=== PATIENT | female | born 1985 | race Caucasian/White ===

== ENCOUNTER 2016-07-13 21:35 | Emergency (ER) | payer OTHER ==
[~2016-07-13] VITALS: Ht 167.6 cm; Wt 83.9 kg
[~2016-07-13 21:35] MED LIST: 'PARAFON FORTE500 M1 PO; ALBUTEROL0.09 MG/A2 IH; AMOXICILLIN500 M3 PO; AMOXICILLIN500 MG PO; AMOXIL500 MG PO; ANAPROX DS550 MG PO; ATARAX,VISTARIL10 MG PO; BACTRIM DS 8001 TA1 PO; BENTYL PO; BENTYL10 MG PO; BUSPIRONE30 MG PO; CARAFATE1 G1 PO; CEPHALEXIN500 M1 PO; CIPRO250 MG PO; CIPROFLOXACIN500 MG PO; CLARITIN-D 12 H1 TAB PO; CLARITIN10 MG PO; CLEOCIN HCL150 MG PO; COMBIVENT1 ARO IH; CYCLOBENZAPRINE10 MG PO; DARVOCET N 1001 TAB PO; DONNATAL1 TAB PO; DOXYCYCLINE MO100 MG PO; EES400 MG PO; FLEXERIL10 MG PO; Fioricet 325 MG1 TAB PO; GOLYTELY1 PDR PO; HYDROCODONE BIT1 T11 PO; HYDROXYZINE PAM50 MG PO; IBU-8800 MG PO; IMITREX100 MG PO; IMODIUM2 MG PO; KLONOPIN0.5 MG PO; KLONOPIN1 M1 PO; LAMICTAL100 MG PO; LAMICTAL200 MG PO; LAMOTRIGINE200 MG PO; LIDEX0.05% T; MACROBID100 M1 PO; MEDROL DOSEPAK4 MG PO; MELATONIN5 M1 PO; MOTRIN800 MG PO; NAPROSYN500 MG PO; NATURE'S BLEND F1 MG PO; NEURONTIN300 MG PO; NICODERM C21 MG/24 H TD; NKHM; NORCO 5-325 TA1 EACH PO; NORTRIPTYLINE10 MG PO; OMEPRAZOLE20 M2 PO; PEN-VEE K500 MG PO; PENICILLIN VK500 MG PO; PEPCID20 MG PO; PEPCID40 MG PO; PHENERGAN25 M1 PO; PREDNICOT20 MG PO; PRINIVIL5 M1 PO; PROAIR HFA0.09 MG/AC IH; PROPRANOLOL HCL40 M1 PO; PYRIDIUM200 M1 PO; PYRIDIUM200 MG PO; Phenergan25 MG PO; REMERON45 MG PO; ROBITUSSIN DM 105 ML PO; ROBITUSSIN-AC120 ML PO; SPIRIVA RESPIMAT4 GM INH; SUDAFED60 MG PO; SYMBICORT1 AE1 INH; TESSALON PERLE200 MG PO; TOBRADEX 0.1%-0.5 ML OPH; TORADOL10 MG PO; TRAMADOL HCL50 MG PO; TRAZODONE100 MG PO; TRIMOX500 MG PO; TRINTELLIX20 MG PO; TUDORZA PRESS400 MCG IH; ULTRAM50 MG PO; VENTOLIN 02.5 MG/3 M INH; VENTOLIN H0.09 MG/AC INH; VICODIN 5/500 505 MG PO; VICODIN 500 MG-1 TAB PO; VISTARIL25 M1 PO; VOLTAREN50 M1 PO; ZITHROMAX Z PA250 MG PO; ZITHROMAX250 MG PO; ZOFRAN ODT4 MG SL; ZOFRAN4 MG PO; ZOFRAN8 M1 PO; Zofran4 MG PO
== END 2016-07-13 21:51 | disposition home or self-care (01) ==
LOC: ED 21:35
DX: S46.911A Strain of unspecified muscle, fascia and tendon at shoulder and upper arm level, right arm, initial encounter (principal); F17.200 Nicotine dependence, unspecified, uncomplicated; J44.9 Chronic obstructive pulmonary disease, unspecified; E66.9 Obesity, unspecified; Z68.34 Body mass index [BMI] 34.0-34.9, adult; Z98.51 Tubal ligation status; Z98.890 Other specified postprocedural states; Z88.4 Allergy status to anesthetic agent; X58.XXXA Exposure to other specified factors, initial encounter; Y93.89 Activity, other specified; Y92.89 Other specified places as the place of occurrence of the external cause; Y99.9 Unspecified external cause status

== ENCOUNTER 2017-05-09 02:42 | Emergency (ER) | payer OTHER ==
[~2017-05-09] VITALS: Ht 167.6 cm; Wt 94.1 kg
[2017-05-09 03:20] LABS: BASO # 0.1 10*3/uL (0.0-0.1); BASO % 0.7 % (0.0-1.0); EOS # 0.3 10*3/uL (0.0-0.4); EOS % 2.8 % (1.0-4.0); HEMATOCRIT 40.1 % (37.0-47.0); HEMOGLOBIN 13.2 g/dl (12.0-16.0); LYMPH # 3.2 10*3/uL (1.3-4.4); LYMPH % 35.5 % (27.0-41.0); MEAN CELL VOLUME 84.4 fl (81.0-99.0); MEAN CORPUSCULAR HGB 27.8 pg (27.0-31.0); MEAN CORPUSCULAR HGB CONC 32.9 g/dl (33.0-37.0); MEAN PLATELET VOLUME 9.4 fl (9.6-12.3); MONO # 0.6 10*3/uL (0.1-1.0); MONO % 6.5 % (3.0-9.0); NEUT # 4.8 10*3/uL (2.3-7.9); NEUT % 54.3 % (47.0-73.0); PLATELET COUNT AUTOMATED 315 10*3/uL (130-400); RED BLOOD COUNT 4.75 10*6/uL (4.10-5.10); RED CELL DISTRI WIDTH 13.2 % (0-14.5); WHITE BLOOD COUNT 8.9 10*3/uL (4.8-10.8)
[2017-05-09 03:31] LABS: BUN 10 mg/dl (7-24); CHLORIDE 104 mmol/L (98-107); CREATININE 1.06 mg/dL (0.55-1.02); POTASSIUM 3.5 mmol/L (3.5-5.1); SODIUM 139 mmol/L (136-145)
[2017-05-09] MEDS ORDERED: OMNICEF300 MG PO (04:02)
[2017-05-09] MEDS ORDERED: PROAIR HFA8.5 GM INH (04:02)
[2017-05-09] MEDS ORDERED: PREDNISONE10 MG PO (04:02)
== END 2017-05-09 04:34 | disposition home or self-care (01) ==
LOC: ED 02:42
PROVIDERS: Emergency Medicine Emergency Medical Services
DX: J20.9 Acute bronchitis, unspecified (principal); J44.9 Chronic obstructive pulmonary disease, unspecified; F17.200 Nicotine dependence, unspecified, uncomplicated; Z88.4 Allergy status to anesthetic agent

== ENCOUNTER 2017-05-31 20:50 | Emergency (ER) | payer OTHER ==
[~2017-05-31] VITALS: Ht 167.6 cm; Wt 92.1 kg
[~2017-05-31 20:50] MED LIST changes: +OMNICEF300 MG PO; +PREDNISONE10 MG PO; +PROAIR HFA8.5 GM INH
== END 2017-05-31 22:46 | disposition home or self-care (01) ==
LOC: ED 20:50
DX: G43.909 Migraine, unspecified, not intractable, without status migrainosus (principal); J44.9 Chronic obstructive pulmonary disease, unspecified; F10.10 Alcohol abuse, uncomplicated; Z88.8 Allergy status to other drugs, medicaments and biological substances; Z79.899 Other long term (current) drug therapy; Z68.34 Body mass index [BMI] 34.0-34.9, adult; Z98.51 Tubal ligation status

== ENCOUNTER 2017-07-15 16:53 | Emergency (ER) | payer OTHER ==
[~2017-07-15] VITALS: Ht 167.6 cm; Wt 93.9 kg
[2017-07-15] MEDS ORDERED: Motrin,Rufen800 MG PO (17:07)
[2017-07-15] MEDS ORDERED: AMOXICILLIN500 M2 PO (17:07)
== END 2017-07-15 18:34 | disposition home or self-care (01) ==
LOC: ED 16:53
DX: K08.89 Other specified disorders of teeth and supporting structures (principal); F17.200 Nicotine dependence, unspecified, uncomplicated; Z98.51 Tubal ligation status; Z98.890 Other specified postprocedural states; Z88.4 Allergy status to anesthetic agent; Z79.899 Other long term (current) drug therapy

== ENCOUNTER 2017-07-23 14:11 | Emergency (ER) | payer OTHER ==
[~2017-07-23] VITALS: Ht 167.6 cm; Wt 93.9 kg
[~2017-07-23 14:11] MED LIST changes: +AMOXICILLIN500 M2 PO; +Motrin,Rufen800 MG PO
[2017-07-23] MEDS ORDERED: DESOGEST-ETH E1 EACH PO (14:13)
[2017-07-23] MEDS ORDERED: AMITRIPTYLINE H10 M1 PO (14:14)
[2017-07-23] MEDS ORDERED: PROAIR HFA8.5 GM INH (14:14)
[2017-07-23] MEDS ORDERED: AUGMENTIN 875875 MG PO (16:25)
== END 2017-07-23 16:29 | disposition home or self-care (01) ==
LOC: ED 14:11
DX: H65.93 Unspecified nonsuppurative otitis media, bilateral (principal); F17.200 Nicotine dependence, unspecified, uncomplicated; G43.909 Migraine, unspecified, not intractable, without status migrainosus; E66.9 Obesity, unspecified; J44.9 Chronic obstructive pulmonary disease, unspecified; Z98.51 Tubal ligation status; Z98.890 Other specified postprocedural states; Z68.34 Body mass index [BMI] 34.0-34.9, adult; Z79.899 Other long term (current) drug therapy; Z88.4 Allergy status to anesthetic agent

== ENCOUNTER 2017-07-30 15:12 | Emergency (ER) | payer OTHER ==
[~2017-07-30] VITALS: Ht 167.6 cm; Wt 98.4 kg
[~2017-07-30 15:12] MED LIST changes: +AMITRIPTYLINE H10 M1 PO; +AUGMENTIN 875875 MG PO; +DESOGEST-ETH E1 EACH PO
== END 2017-07-30 16:21 | disposition home or self-care (01) ==
LOC: ED 15:12
DX: K08.89 Other specified disorders of teeth and supporting structures (principal); F17.200 Nicotine dependence, unspecified, uncomplicated; J44.9 Chronic obstructive pulmonary disease, unspecified; G43.909 Migraine, unspecified, not intractable, without status migrainosus; E66.9 Obesity, unspecified; Z68.34 Body mass index [BMI] 34.0-34.9, adult; Z98.51 Tubal ligation status; Z98.890 Other specified postprocedural states; Z79.899 Other long term (current) drug therapy; Z88.4 Allergy status to anesthetic agent

== ENCOUNTER 2017-12-04 04:27 | Emergency (ER) | payer OTHER ==
[~2017-12-04] VITALS: Ht 167.6 cm; Wt 83.9 kg
== END 2017-12-04 05:23 | disposition home or self-care (01) ==
LOC: ED 04:27
DX: S96.912A Strain of unspecified muscle and tendon at ankle and foot level, left foot, initial encounter (principal); J44.9 Chronic obstructive pulmonary disease, unspecified; G43.909 Migraine, unspecified, not intractable, without status migrainosus; E66.9 Obesity, unspecified; Z68.30 Body mass index [BMI] 30.0-30.9, adult; Z98.51 Tubal ligation status; Z90.49 Acquired absence of other specified parts of digestive tract; Z88.8 Allergy status to other drugs, medicaments and biological substances; Z79.899 Other long term (current) drug therapy; W01.0XXA Fall on same level from slipping, tripping and stumbling without subsequent striking against object, initial encounter; Y93.89 Activity, other specified; Y92.89 Other specified places as the place of occurrence of the external cause; Y99.8 Other external cause status

== ENCOUNTER 2017-12-20 22:11 | Emergency (ER) | payer OTHER ==
[~2017-12-20] VITALS: Ht 167.6 cm; Wt 131.1 kg
== END 2017-12-20 23:47 | disposition home or self-care (01) ==
LOC: ED 22:11
DX: S93.491A Sprain of other ligament of right ankle, initial encounter (principal); S93.492A Sprain of other ligament of left ankle, initial encounter; S90.01XA Contusion of right ankle, initial encounter; F17.200 Nicotine dependence, unspecified, uncomplicated; Z98.51 Tubal ligation status; Z98.890 Other specified postprocedural states; Z79.899 Other long term (current) drug therapy; Z88.4 Allergy status to anesthetic agent; X50.1XXA Overexertion from prolonged static or awkward postures, initial encounter; Y93.89 Activity, other specified; Y92.89 Other specified places as the place of occurrence of the external cause; Y99.9 Unspecified external cause status

== ENCOUNTER 2018-01-06 21:10 | Emergency (ER) | payer OTHER ==
[~2018-01-06] VITALS: Ht 167.6 cm; Wt 131.1 kg
[2018-01-06] MEDS ORDERED: ANAPROX DS550 MG PO (21:22)
== END 2018-01-06 22:03 | disposition home or self-care (01) ==
LOC: ED 21:10
DX: S93.402A Sprain of unspecified ligament of left ankle, initial encounter (principal); F17.200 Nicotine dependence, unspecified, uncomplicated; Z88.4 Allergy status to anesthetic agent; Z79.899 Other long term (current) drug therapy; X50.1XXA Overexertion from prolonged static or awkward postures, initial encounter; Y93.89 Activity, other specified; Y92.89 Other specified places as the place of occurrence of the external cause; Y99.8 Other external cause status

== ENCOUNTER 2018-07-22 15:21 | Emergency (ER) | payer OTHER ==
[~2018-07-22] VITALS: Ht 165.1 cm; Wt 92.5 kg
[2018-07-22] MEDS ORDERED: PENICILLIN-VK500 M1 PO (15:47)
[2018-07-22] MEDS ORDERED: Motrin,Rufen800 MG PO (15:47)
== END 2018-07-22 16:04 | disposition home or self-care (01) ==
LOC: ED 15:21
DX: K08.89 Other specified disorders of teeth and supporting structures (principal); K06.1 Gingival enlargement; F17.200 Nicotine dependence, unspecified, uncomplicated; Z88.4 Allergy status to anesthetic agent

== ENCOUNTER 2018-08-09 13:38 | Emergency (ER) | payer OTHER ==
[~2018-08-09] VITALS: Wt 81.6 kg
[~2018-08-09 13:38] MED LIST changes: +PENICILLIN-VK500 M1 PO
[2018-08-09 14:20] LABS: BASO # 0.1 10*3/uL (0.0-0.1); EOS # 0.2 10*3/uL (0.0-0.4); EOS % 3.2 % (1.0-4.0); HEMATOCRIT 39.1 % (37.0-47.0); HEMOGLOBIN 13.2 g/dl (12.0-16.0); LYMPH % 31.7 % (27.0-41.0); MEAN CELL VOLUME 85.7 fl (81.0-99.0); MEAN CORPUSCULAR HGB 28.9 pg (27.0-31.0); MEAN CORPUSCULAR HGB CONC 33.8 g/dl (33.0-37.0); MEAN PLATELET VOLUME 9.8 fl (9.6-12.3); MONO # 0.5 10*3/uL (0.1-1.0); MONO % 8.3 % (3.0-9.0); NEUT # 3.5 10*3/uL (2.3-7.9); NEUT % 55.6 % (47.0-73.0); PLATELET COUNT AUTOMATED 320 10*3/uL (130-400); RED BLOOD COUNT 4.56 10*6/uL (4.10-5.10); RED CELL DISTRI WIDTH 12.7 % (0-14.5); WHITE BLOOD COUNT 6.3 10*3/uL (4.8-10.8)
[2018-08-09 14:39] LABS: ALBUMIN 3.4 gm/dl (3.1-4.5); ALKALINE PHOSPHATASE 80 U/L (45-117); BUN 8 mg/dl (7-24); CHLORIDE 108 mmol/L (98-107); CREATININE 0.91 mg/dL (0.55-1.02); SGOT/AST 11 IU/L (3-35); SGPT/ALT 26 U/L (12-78); SODIUM 140 mmol/L (136-145)
== END 2018-08-09 15:28 | disposition home or self-care (01) ==
LOC: ED 13:38
PROVIDERS: Nurse Practitioner Family
DX: R60.0 Localized edema (principal); R03.0 Elevated blood-pressure reading, without diagnosis of hypertension; R20.0 Anesthesia of skin; R20.2 Paresthesia of skin; J44.9 Chronic obstructive pulmonary disease, unspecified; E66.9 Obesity, unspecified; G43.909 Migraine, unspecified, not intractable, without status migrainosus; F17.200 Nicotine dependence, unspecified, uncomplicated; Z88.4 Allergy status to anesthetic agent; Z79.2 Long term (current) use of antibiotics; Z79.899 Other long term (current) drug therapy; Z68.30 Body mass index [BMI] 30.0-30.9, adult

== ENCOUNTER 2018-10-05 21:58 | Emergency (ER) | payer OTHER ==
[~2018-10-05] VITALS: Ht 167.6 cm; Wt 88.5 kg
== END 2018-10-05 22:55 | disposition home or self-care (01) ==
LOC: ED 21:58
DX: T78.49XA Other allergy, initial encounter (principal); K12.0 Recurrent oral aphthae; J44.9 Chronic obstructive pulmonary disease, unspecified; F17.200 Nicotine dependence, unspecified, uncomplicated; Z88.4 Allergy status to anesthetic agent; Y93.E9 Activity, other interior property and clothing maintenance

== ENCOUNTER 2018-11-06 13:50 | Emergency (ER) | payer OTHER ==
[~2018-11-06] VITALS: Ht 172.7 cm; Wt 83.9 kg
[2018-11-06] MEDS ORDERED: Motrin,Rufen800 MG PO (14:11)
[2018-11-06] MEDS ORDERED: AMOXICILLIN500 M2 PO (14:11)
== END 2018-11-06 14:22 | disposition home or self-care (01) ==
LOC: ED 13:50
DX: K02.9 Dental caries, unspecified (principal); F17.200 Nicotine dependence, unspecified, uncomplicated; Z88.4 Allergy status to anesthetic agent; Z98.51 Tubal ligation status; Z90.49 Acquired absence of other specified parts of digestive tract

== ENCOUNTER 2018-12-23 18:33 | Emergency (ER) | payer OTHER ==
[~2018-12-23] VITALS: Ht 167.6 cm; Wt 79.4 kg
[2018-12-23] MEDS ORDERED: PENICILLIN VK500 MG PO (19:29)
[2018-12-23] MEDS ORDERED: TOBRADEX 0.3-03.5 GM OPH (19:29)
== END 2018-12-23 19:33 | disposition home or self-care (01) ==
LOC: ED 18:33
DX: K04.7 Periapical abscess without sinus (principal); H00.011 Hordeolum externum right upper eyelid; F17.200 Nicotine dependence, unspecified, uncomplicated; Z88.4 Allergy status to anesthetic agent; Z79.2 Long term (current) use of antibiotics; Z79.899 Other long term (current) drug therapy; Z90.49 Acquired absence of other specified parts of digestive tract

== ENCOUNTER 2019-01-15 14:21 | Emergency (ER) | payer OTHER ==
[~2019-01-15] VITALS: Ht 170.1 cm; Wt 83.9 kg
[~2019-01-15 14:21] MED LIST changes: +TOBRADEX 0.3-03.5 GM OPH
[2019-01-15] MEDS ORDERED: Motrin,Rufen800 MG PO (14:34)
[2019-01-15] MEDS ORDERED: AUGMENTIN 875875 MG PO (14:34)
== END 2019-01-15 14:41 | disposition home or self-care (01) ==
LOC: ED 14:21
DX: K08.89 Other specified disorders of teeth and supporting structures (principal); F17.200 Nicotine dependence, unspecified, uncomplicated; Z88.4 Allergy status to anesthetic agent; Z79.2 Long term (current) use of antibiotics; Z79.899 Other long term (current) drug therapy; Z90.49 Acquired absence of other specified parts of digestive tract

== ENCOUNTER 2021-03-30 09:23 | Emergency (ER) | payer OTHER ==
[~2021-03-30] VITALS: Ht 165.1 cm; Wt 81.6 kg
[2021-03-30] MEDS ORDERED: PROVENTIL HFA6.7 GM INH (15:31)
[2021-03-30] MEDS ORDERED: CORTISPORIN SUS10 ML OT (15:31)
[2021-03-30] MEDS ORDERED: AMOXICILLIN500 M2 PO (15:31)
[2021-03-30] MEDS ORDERED: PREDNISONE20 M1 PO (15:31)
== END 2021-03-30 15:44 | disposition home or self-care (01) ==
LOC: ED 09:23
DX: H66.93 Otitis media, unspecified, bilateral (principal); Z20.822 Contact with and (suspected) exposure to COVID-19; H60.503 Unspecified acute noninfective otitis externa, bilateral

== ENCOUNTER 2021-05-02 14:59 | Emergency (ER) | payer OTHER ==
[~2021-05-02] VITALS: Wt 86.2 kg
[~2021-05-02 14:59] MED LIST changes: +CORTISPORIN SUS10 ML OT; +PREDNISONE20 M1 PO; +PROVENTIL HFA6.7 GM INH
[2021-05-02 18:03] LABS: BASO % 0.3 % (0.0-1.0); EOS # 0.1 10*3/uL (0.0-0.4); EOS % 1.4 % (1.0-4.0); HEMATOCRIT 40.9 % (37.0-47.0); LYMPH # 1.3 10*3/uL (1.3-4.4); LYMPH % 36.1 % (27.0-41.0); MEAN CELL VOLUME 85.9 fl (81.0-99.0); MEAN CORPUSCULAR HGB 27.9 pg (27.0-31.0); MEAN CORPUSCULAR HGB CONC 32.5 g/dl (33.0-37.0); MEAN PLATELET VOLUME 9.4 fl (9.6-12.3); MONO # 0.5 10*3/uL (0.1-1.0); MONO % 12.8 % (3.0-9.0); NEUT # 1.8 10*3/uL (2.3-7.9); NEUT % 49.1 % (47.0-73.0); PLATELET COUNT AUTOMATED 234 10*3/uL (130-400); RED BLOOD COUNT 4.76 10*6/uL (4.10-5.10); RED CELL DISTRI WIDTH 12.9 % (0-14.5); WHITE BLOOD COUNT 3.7 10*3/uL (4.8-10.8)
[2021-05-02 18:19] LABS: ALBUMIN 3.3 gm/dl (3.1-4.5); ALKALINE PHOSPHATASE 90 U/L (45-117); BUN 8 mg/dl (7-24); CHLORIDE 112 mmol/L (98-107); CREATININE 0.83 mg/dL (0.55-1.02); POTASSIUM 4.4 mmol/L (3.5-5.1); SGOT/AST 27 IU/L (3-35); SGPT/ALT 51 U/L (12-78); SODIUM 141 mmol/L (136-145); TOTAL PROTEIN 7.1 gm/dL (6.4-8.2)
[2021-05-02] MEDS ORDERED: CLARITIN10 MG PO (20:55)
== END 2021-05-02 21:00 | disposition home or self-care (01) ==
LOC: ED 14:59
PROVIDERS: Student in an Organized Health Care Education/Training Program
DX: J06.9 Acute upper respiratory infection, unspecified (principal); Z20.822 Contact with and (suspected) exposure to COVID-19; Z88.4 Allergy status to anesthetic agent; F17.200 Nicotine dependence, unspecified, uncomplicated